=== PATIENT | female | born 1985 | race Caucasian/White ===

== ENCOUNTER 2018-09-13 08:17 | Emergency (ER) | payer MEDICAID ==
[~2018-09-13] VITALS: Ht 165.1 cm; Wt 97.7 kg
[~2018-09-13 08:17] MED LIST: CIPR500T4 PO; FERR240T9 PO; HYDR-3498 PO; PREN1TAB62 PO; ZOF8 PO
[2018-09-13 08:26] VITALS: BP 132/61; PULSE 71; RESP 18; Ht 165.1 cm; Wt 97.7 kg
--- NOTE | 2018-09-13 09:31 | ERD ---
ER Documentation Chief Complaint Chief Complaint C/O DIZZINESS LIKE THE ROOM SPINNING SINCE YESTERDAY HPI Nataly Lan is a 33-year-old female, who presents to the emergency department, complaining of a spinning sensation that is started last night, associated with nausea. The symptoms are worse with changes in position. She denies headaches, no blurred vision, no distal weakness, numbness or tingling. ROS All systems reviewed and are negative except as per history of present illness. Medications Home Meds Active Scripts Ciprofloxacin Hcl* (Ciprofloxacin Hcl*) 500 Mg Tablet, 500 MG PO BID for 3 Days, TAB Prov:ABHISHEK PONCE PA-C 01/26/15 Hydrocodone Bit-Acetaminophen* ([place]*) 5-325 Mg Tab, 1 TAB PO Q6 PRN for PAIN, #10 TAB Prov:ABHISHEK PONCE PA-C 01/26/15 Ondansetron Hcl* (Zofran* ODT) 8 mg -ODT Tab.disper, 8 MG PO Q6 PRN for NAUSEA AND/OR VOMITING, #14 TAB Prov:ABHISHEK PONCE PA-C 01/26/15 Reported Medications Ferrous Gluconate (Iron) 1 Tab Tablet, 1 TAB PO DAILY 05/18/14 Vit-Iron Fumarate-FA ( Vitamin Tablet) 1 Each Tablet, 1 TAB PO, TAB 05/18/14 Allergies Allergies: Coded Allergies: No Known Allergy (Unverified , 12/17/14) PMhx/Soc Medical and Surgical Hx: pt denies Medical Hx History of Surgery: Yes (Susan) Anesthesia Reaction: No Hx Neurological Disorder: No Hx Respiratory Disorders: No Hx Cardiac Disorders: No Hx Psychiatric Problems: No Hx Miscellaneous Medical Probl: No Hx Alcohol Use: No Hx Substance Use: No Hx Tobacco Use: No Smoking Status: Never smoker Physical Exam Vitals Vital Signs Date Temp Pulse Resp B/P (MAP) Pulse Ox O2 O2 Flow FiO2 Time Delivery Rate 09/13/18 98.7 71 18 132/61 98 08:26 (84) Physical Exam Patient is in no acute distress, vital signs stable. Alert and fully oriented. HEENT: PERRLA, EOMI, Sclera and conjunctiva appear normal, Canals clear, tympanic membranes WNL. THROAT: Normal oropharynx. NECK: Supple, No lymphadenopathy. Full ROM without pain or tenderness. HEART: RRR, no rubs, murmurs, clicks or gallops. LUNGS: Clear to auscultation. ABDOMEN: Soft, non-tender without masses or hepatosplenomegaly. EXTREMITIES: No edema bilaterally. BACK: Full ROM, no deformity, normal back exam NEURO: Cranial nerves grossly intact, no motor or sensory deficit. Mild horizontal nystagmus while the patient was looking straight ahead with mildly abnormal head impulse test. Result Diagram: 09/13/18 1011 Results 24 hrs Laboratory Tests Test 09/13/18 10:02 09/13/18 10:03 09/13/18 10:11 Bedside Urine pH (LAB) 5.5 Bedside Urine Protein (LAB) Trace Bedside Urine Glucose (UA) Negative Bedside Urine Ketones (LAB) Trace Bedside Urine Blood 3+ Bedside Urine Nitrite (LAB) Negative Bedside Urine Leukocyte Esterase Negative (L POC Beta HCG, Qualitative NEGATIVE White Blood Count 8.4 10^3/ul Red Blood Count 4.74 10^6/ul Hemoglobin 13.6 g/dl Hematocrit 42.1 % Mean Corpuscular Volume 88.8 fl Mean Corpuscular Hemoglobin 28.7 pg Mean Corpuscular 32.3 g/dl Hemoglobin Concent Red Cell Distribution Width 12.9 % Platelet Count 278 10^3/UL Mean Platelet Volume 10.1 fl Immature Granulocytes % 0.400 % Neutrophils % 65.4 % Lymphocytes % 23.0 % Monocytes % 8.1 % Eosinophils % 2.0 % Basophils % 1.1 % Nucleated Red Blood Cells % 0.0 /100WBC Immature Granulocytes # 0.030 10^3/ul Neutrophils # 5.5 10^3/ul Lymphocytes # 1.9 10^3/ul Monocytes # 0.7 10^3/ul Eosinophils # 0.2 10^3/ul Basophils # 0.1 10^3/ul Nucleated Red Blood Cells # 0.0 10^3/ul Current Medications Medications Dose Sig/John Start Time Status Last (Trade) Ordered Route PRN Stop Time Admin Dose Reason Admin Meclizine 25 mg ONCE ONCE 09/13/18 DC 09/13/18 HCl PO 10:00 10:05 (Antivert) 09/13/18 10:01 Ondansetron 4 mg ONCE STAT 09/13/18 DC 09/13/18 HCl (Zofran ODT 09:40 10:05 Odt) 09/13/18 09:47 Procedures/MDM Vital signs stable, neurovascular exam revealed horizontal nystagmus while the patient was looking straight ahead with mildly abnormal head impulse test. Differential diagnosis include but not limited to dehydration, cardiac arrhythmia, , Mnire's disease, vestibular neuronitis, migraine, vertigo, side effects of the medications, hypoglycemia. Less likely but is still a possibility, intracranial hemorrhage, ischemic stroke, [employer] neoplasm. Pertinent Data: 12 Lead ECG: Sinus rhythm, no ST changes, normal T wave, normal intervals Labs: CBC: normal, BMP: normal kidney function, normal electrolytes. Glucose: normal Urine : Negative. Physical examination and clinical presentation consistent most likely with positional vertigo During the ED course the patient remained stable, no new complaints. Results and clinical impression discussed with patient who agrees with management. The patient is stable to be treated outpatient and will be discharged home with instructions to follow up with the primary care provider in the next 48h. If symptoms persist, worsen or new symptoms develop, then patient should return to the ED immediately. Instructions explained and given directly by me to the patient with acknowledgment and demonstrated understanding. Disclaimer: Inadvertent spelling and grammatical errors are likely due to EHR/dictation software use and do not reflect on the overall quality of patient care. Also, please note that the electronic time recorded on this note does not necessarily reflect the actual time of the patient encounter. Departure Diagnosis: Primary Impression: Positional vertigo of right ear Condition: Stable Additional Instructions: Muchas zach por [facility] para dickens servicio. Esperamos que en dickens visita a la mariam de emergencia dickens problema medico haya sido solucionado y que se sienta mucho mejor. Para estar seguros que dickens mejoria sigue en proceso, le pedimos el favor de hacer dustin maged de seguimiento medico con dickens doctor primario en los proximos 2-4 eden. Lleve con usted estos documentos y las medicinas recetadas. Si lisa sintomas empeoran, NO SE ESPERE, por favor regrese a mariam de emergencia INMEDIATAMENTE. En [place] que usted no tenga un mdico de atencin primaria: Llame al mdico o clnica comunitaria de referencia que aparece abajo lakhwinder la s horas de consultorio para hacer dustin maged para que le vean. CLINICAS: [facility] [phone] [facility] [phone] [facility] [phone] [place] [phone] [place] [phone] [facility]. [phone] LAVERNE VALENTINE MD Sep 13, 2018 09:31
[2018-09-13] MEDS ORDERED: ONDANSETRON (ODT) 4 MG TAB ODT STA (09:40)
[2018-09-13] MEDS ORDERED: MECLIZINE 12.5 MG TAB PO ONE (10:00)
[2018-09-13] MEDS ORDERED: ONDA4TAB8 PO (10:31)
[2018-09-13] MEDS ORDERED: MECL12.574 PO (10:31)
== END 2018-09-13 10:58 | disposition home or self-care (01) ==
LOC: FTE 08:17
DX: H81.11 Benign paroxysmal vertigo, right ear (principal)
CPT/HCPCS: 80048; 81003; 81025; 85025; Z7502; Z7610